=== PATIENT | male | born 1985 | race Hispanic/Latino ===

== ENCOUNTER → 2023-08-04 | Emergency (ER) | payer SELFPAY ==
[~2023-08-04] VITALS: Ht 177.8 cm; Wt 84.4 kg
[2023-08-04 09:00] LABS: BILIRUBIN, URINE NEGATIVE (negative); BLOOD/HGB, URINE NEGATIVE (Negative); KETONE, URINE NEGATIVE (Negative); LEUK ESTERASE, URINE NEGATIVE (negative); NITRITE, URINE NEGATIVE (negative); PH, URINE 7.5 (5-7)
[2023-08-04 09:13] LABS: BASOPHILS 0.9 % (0-2); EOSINOPHILS 2.3 % (0-6); HEMATOCRIT 45.7 % (35.0-50.0); HEMOGLOBIN 15.2 g/dL (12.0-18.0); LYMPHOCYTES 44.5 % (24-44); MCH 29.5 (27-36); MCHC 33.3 g/dl (30-36); MCV 88.5 fl (81-99); MONOCYTES 10.6 % (0-12); NEUTROPHILS 41.7 % (39-80); PLATELET COUNT 281 K/uL (140-440); RBC 5.16 M/ul (4.3-5.7); RDW 14.9 (10.5-15.0)
[2023-08-04 09:22] LABS: AMPHETAMINES, URINE NEGATIVE (NEGATIVE); BARBITURATES, URINE NEGATIVE (NEGATIVE); BENZODIAZEPINE, URINE NEGATIVE (NEGATIVE); BUPRENORPHINE, URINE NEGATIVE (NEGATIVE); CANNABINOID, URINE NEGATIVE (NEGATIVE); COCAINE, URINE NEGATIVE (NEGATIVE); ECSTASY, URINE NEGATIVE (NEGATIVE); FENTANYL, URINE NEGATIVE (NEGATIVE); METHADONE, URINE NEGATIVE (NEGATIVE); OPIATES, URINE NEGATIVE (NEGATIVE); OXYCODONE, URINE NEGATIVE (NEGATIVE); PHENCYCLIDINE, URINE NEGATIVE (NEGATIVE)
[2023-08-04 09:40] LABS: ACETAMINOPHEN 0 ug/mL (10-30); ALBUMIN 4.1 g/dL (3.4-5.0); ALBUMIN/GLOBULIN RATIO 1.03 (1.1-2.4); ALCOHOL, MEDICAL <3 ng/dL (<3); ALKALINE PHOSPHATASE 80 U/L (46-116); ALT (SGPT) 25 U/L (14-59); ANION GAP 13.5 (7-21); AST (SGOT) 23 U/L (15-37); BILIRUBIN, TOTAL 0.7 ng/dL (0.2-1.0); CALCIUM 9.3 mg/dL (8.5-10.1); CARBON DIOXIDE 32 mmol/L (21-32); CHLORIDE 99 mmol/L (98-107); CREATININE, SERUM 0.97 mg/dL (0.70-1.30); GLOMERULAR FILTRATION RATE,EST 102 mL/min (>60); POTASSIUM 3.5 mmol/L (3.5-5.1); PROTEIN, TOTAL 8.1 g/dL (6.4-8.2); TSH, 3RD GENERATION 1.081 uIU/mL (0.358-3.740); UREA NITROGEN 13 mg/dL (7-18)
[2023-08-04 10:07] LABS: INFLUENZA B NAA NEGATIVE (NEGATIVE); RESPIRATORY SYNCYTIAL VIR NAA NEGATIVE (NEGATIVE)
[2023-08-07 21:30] VITALS: BP 135/74
== END ==
LOC: ED 08:27
PROVIDERS: Family Medicine
DX: R46.89 Other symptoms and signs involving appearance and behavior (principal); U07.1 COVID-19
CPT/HCPCS: 36415; 80053; 80307; 81003; 84443; 85025; 85060; 87502; A9270; C9803; G0480; U0002